=== PATIENT | male | born 1950 | race Caucasian/White ===

== ENCOUNTER 2022-07-06 13:15 | Observation (INO) | payer MEDICARE, SELFPAY ==
--- NOTE | 2022-07-04 12:22 | EKG12_ITS ---
Test Reason : PRE OP Blood Pressure : / mmHG Vent. Rate : 071 BPM Atrial Rate : 071 BPM P-R Int : 208 ms QRS Dur : 080 ms QT Int : 384 ms P-R-T Axes : 058 008 051 degrees QTc Int : 417 ms Normal sinus rhythm Normal ECG Confirmed by BYRON BLUM, VERONICA ([id number]), science editor BEBO MADISON ([id number]) on 07/05/2022 6:19:47 AM Referred By: KWAME Confirmed By:VERONICA MATTHEWS MD
[2022-07-04 12:41] LABS: Hematocrit 42.7 % (40-54); Hemoglobin 13.9 g/dL (13.0-16.5); Mean Corp Hgb Conc 32.6 g/dL (32-36); Mean Corpuscular Hgb 31.8 pg (27.0-32.0); Mean Corpuscular Volume 97.7 fL (80-94); Mean Platelet Vol. 10.1 fl (6.2-12.0); Platelet Count 201 K/mm3 (150-450); RBC Distribution Width CV 12.1 % (11.6-14.6); RBC Distribution Width SD 43.7 fl (35.1-43.9); Red Blood Count 4.37 M/mm3 (4.6-6.2); White Blood Count 7.6 K/mm3 (4.4-11.0)
[2022-07-06] VITALS (13 sets, daily range): BP systolic 108–130; BP diastolic 63–92; PULSE 55–76; RESP 16–18; TEMP 36.3–37.1; O2SAT 93–98; BMI 25.9; BMI 26.0
[2022-07-06] MEDS: Lactated Ringers 1,000 ML 15 ML IV (10:20)
--- NOTE | 2022-07-06 11:43 | PCM.HP.STD ---
HPI - General General Date of Service: 07/06/22 HPI Narrative MARIO YOUNG, is a 72 M who presents for a transurethral resection of the prostate for an enlarged obstructing prostate. We talked about the risk of the surgery including bleeding infection incontinence worsening bladder control failure to help with the surgery after long review with the patient he was willing to proceed. [facility] Medical History (Updated 06/22/22 @ 11:10 by Ashwini Gutierrez) Alcohol use Arthritis Former smoker High cholesterol Leg cramps Prostate disease Wears glasses Home Medications atorvastatin 40 mg tablet 40 mg PO DAILY 06/22/22 [History Last Taken 07/06/22] cholecalciferol (vitamin D3) 25 mcg (1,000 unit) capsule (Vitamin D3) 25 mcg PO DAILY 06/22/22 [History Last Taken 07/06/22] diclofenac sodium 50 mg tablet,delayed release 50 mg PO DAILY 06/22/22 [History Last Taken 07/06/22] docusate sodium 100 mg capsule (Stool Softener) 100 mg PO QHS 06/22/22 [History Last Taken 07/05/22] finasteride 5 mg tablet 5 mg PO QHS 06/22/22 [History Last Taken 07/05/22] folic acid 800 mcg tablet 0.8 mg PO DAILY 06/22/22 [History Last Taken 07/05/22] melatonin 3 mg tablet 3 mg PO QHS 06/22/22 [History Last Taken 07/05/22] methotrexate sodium 2.5 mg tablet 10 mg PO FR 06/22/22 [History Last Taken Unknown] tamsulosin 0.4 mg capsule 0.8 mg PO QHS 06/22/22 [History Last Taken 07/05/22] Allergy/AdvReac Type Severity Reaction Status Date / Time amoxicillin Allergy PT UNSURE Verified 07/06/22 10:35 OF REACTION Surgical History (Updated 06/22/22 @ 11:10 by Ashwini Gutierrez) History of toe surgery Hx of appendectomy Hx of colonoscopy Hx of hand surgery Social History Smoking Status: Former smoker Vital Signs Vital Signs Vital Signs: 07/06/22 10:40 07/06/22 10:40 Temperature 98.3 F Temperature Source Temporal Pulse Rate 76 Respiratory Rate 18 Respiratory Pattern Normal Blood Pressure 125/73 H Blood Pressure Mean 90 Blood Pressure Source Monitor Blood Pressure Position Semi-Fowlers Blood Pressure Location Left Arm Pulse Ox 98 Oxygen Delivery Method Room Air Weight Weight: 87 kg Body Mass Index (BMI) 25.9 Results Lab / Micro Data Result Diagrams: 07/04/22 12:14
[2022-07-06] MEDS: Cefazolin 2 GM in 0.9% Normal Saline 100 ML IV (12:16)
--- NOTE | 2022-07-06 12:30 | PROS_PTH ---
PATIENT: MARIO YOUNG LOC: [facility] U#:[id number] AGE/SX: 72/M ROOM: [facility]313 RE07/06/[address]: Dr. Qamar Alfaro MD : 1950 BED: 1 DIS: 07/07/2022 SPEC #: [id number] RECD: 07/06/22 13:14 STATUS: CHRISTEN HAMM #: [id number] EMILIANO: 07/06/22 12:[address]: Qamar Alfaro DEPT: SURGICAL PATHOLOGY RECD BY: Kev Marti ENTERED: 07/06/22 13:22 SP TYPE: TURP OTHR DR: Dr. Chetan Edwards MD Tissues: Prostate, NOS Procedures: Surgery Specimen Level IV HEADER OPERATION: Cysto, TUR prostate, [employer] PRE-OP DIAGNOSIS: Enlarged obstructing prostate TISSUE SUBMITTED: Prostate tissue MICROSCOPIC DIAGNOSIS Prostate, transurethral resection: Benign nodular hyperplasia. Mild chronic inflammation. AM:chava 07/07/2022 MICROSCOPIC DESCRIPTION Slides are reviewed. GROSS DESCRIPTION Received is one container labeled with the patient's name and designated prostate tissue. The specimen consists of multiple irregular fragments of pink-cantu, rubbery, soft tissue that in aggregate weigh 2 gm and measure in aggregate 2 x 1.5 x 0.2 cm. The entire specimen is submitted in one cassette. / AM:chava 07/06/2022 TC:3 CPT: 89546
--- NOTE | 2022-07-06 12:43 | DCINST_ITS ---
Discharge Instructions Diet Discharge Diet: No restrictions, Light diet - advance as tolerated and Soft diet Activity Discharge Activity: Return to Normal Activity Dressing / Incision Call your doctor if your incision/area has: Sudden Increased Bleeding Follow Up Care Please Follow Up With: Qamar Alfaro MD When: call for appt. Test Results: Test results from this visit will be discussed in further detail at your follow- up appointment, if applicable. Discharge Plan Admission Attending Provider: Qamar Alfaro Primary Care Provider: Chetan Edwards Discharge Orders/Prescriptions Prescriptions: No Action atorvastatin 40 mg Tablet 40 mg PO DAILY melatonin 3 mg Tablet 3 mg PO QHS methotrexate sodium [Methotrexate (Anti-Rheumatic)] 2.5 mg Tablet 10 mg PO FR tamsulosin 0.4 mg Capsule 0.8 mg PO QHS docusate sodium [Stool Softener] 100 mg Capsule 100 mg PO QHS diclofenac sodium 50 mg Tablet,Delayed Release (Dr/Ec) 50 mg PO DAILY finasteride 5 mg Tablet 5 mg PO QHS folic acid 800 mcg Tablet 0.8 mg PO DAILY cholecalciferol (vitamin D3) [Vitamin D3] 25 mcg (1,000 unit) Capsule 25 mcg PO DAILY Referrals / Follow Up: Chetan Edwards MD [Primary Care Provider] - Disposition Disposition (needs filled in before D/C Order can be placed): Home, Self Care
--- NOTE | 2022-07-06 12:44 | OP.PCM_ITS ---
Report of Operation Date of Procedure: 07/06/22 Pre-Operative Diagnosis: BPH with obstruction Post-Operative Diagnosis: Same Surgery/Procedure Performed:: Transurethral section prostate Description of Surgical Findings:: In the preoperative setting I discussed with the patient how the surgery would be done with expect afterwards. We discussed how a prostate resection is done and we discussed the risk of the surgery including, bleeding, infection, retrograde ejaculation, changes with ejaculation or intercourse,. We discussed the possibility that the resection of the prostate may not alleviate his urinary symptoms. We discussed the small risk of developing scar tissue along the urethral channel and strictures. We also discussed the chance of the prostate could grow back and he may need further surgery or treatment in the future for prostate problems. Patient was taken back to the operating room, timeout procedure was performed, he was identified and marked and placed on the operating room table. He underwent general anesthesia. He was placed in dorsolithotomy position. Penis and testicles were prepped and draped in usual sterile fashion. Went into the bladder using the visual obturator with a resectoscope. Once inside the bladder identified the right and left ureteral orifice. I then identified the prostate and the anatomy of the prostate. I marked out the area of the sphincter and the verumontanum was identified. I then proceeded with the prostate resection first resected the median lobe. And then resected the right lobe of the prostate. Then to resect the left lobe of the prostate. I then resected the apical tissue of the prostate. This was a complete resection of all obstructive tissue to improve voiding and relieve obstruction. I then made sure that there was no injury to the sphincter or the verumontanum was still intact. At the end of the resection all the chips were Ellik out of the bladder. I then identified the left and right ureteral orifice and these were confirmed to be in good position and effluxing and not injured. The resectoscope was removed, a 22 [place] catheter was placed into the bladder on continuous irrigation. And the urine was fairly light pink color and draining normally. He was taken back to the PACU in good condition. Surgeon: Qamar Alfaro Type of Anesthesia: General Drains: 22fr [address] way Admit VTE Documentation VTE Present on Admission: No VTE Mechan Device Prophylaxis: SCD's VTE Pharm Prophylaxis ordered?: No
[2022-07-06] MEDS: 0.9% Normal Saline 1,000 ML 125 ML IV ×2 (15:25→22:37)
[2022-07-06] MEDS: Ketorolac 15 MG/ML Vial IV (16:44)
[2022-07-06] MEDS: 0.9% Saline Lock 10 ML Syringe IV (16:44)
[2022-07-06] MEDS: HYDROcodone Bitartrate/Apap 5/325 Tablet PO (22:35)
[2022-07-06] MEDS: Docusate Sodium 100 MG Capsule 200 MG PO (22:35)
[2022-07-06] MEDS: MELATONIN 3 MG TABLET PO (22:36)
[2022-07-06] MEDS: Tamsulosin HCl 0.4 MG Capsule 0.8 MG PO (22:36)
[2022-07-06] MEDS: Ciprofloxacin 400 MG/200 ML BAG 200 MG IV (22:36)
[2022-07-07 02:58] VITALS: BMI 26.0
[2022-07-07 04:30] VITALS: BP 117/70; PULSE 64; RESP 16; TEMP 36.6; O2SAT 97
[2022-07-07 04:41] VITALS: BP 117/70; PULSE 64; RESP 16; TEMP 36.6; O2SAT 97
[2022-07-07 06:34] VITALS: BMI 26.0
[2022-07-07] MEDS: 0.9% Normal Saline 1,000 ML 125 ML IV (07:29)
--- NOTE | 2022-07-07 07:44 | PCM.PN.GU ---
Subjective Subjective Status post TURP urine is fairly clear nurses will remove the Nettles catheter he can urinate and go home today. Objective Data Objective Data Vital Signs: Vital Signs Temp Pulse Resp BP Pulse Ox O2 Del Method 97.8 F 64 16 117/70 97 Room Air 07/07/22 04:41 07/07/22 04:41 07/07/22 04:41 07/07/22 04:41 07/07/22 04:41 07/07/22 04:41 Oxygen Delivery Method Room Air Weight: 87 kg Body Mass Index (BMI) 25.9 Intake & Output: Intake and Output for Last 24 Hours 07/05/22 07/06/22 07/07/22 23:59 23:59 23:59 Intake Total 1210 / 1210 1000 / 1000 Output Total 1250 / 1250 1700 / 1700 Balance -40 / -40 -700 / -700 Lab / Micro Data Result Diagrams: 07/04/22 12:14
[2022-07-07 08:00] VITALS: BP 129/61; PULSE 85; RESP 16; TEMP 36.6; O2SAT 96
[2022-07-07] MEDS: Docusate Sodium 100 MG Capsule 200 MG PO (08:03)
== END 2022-07-07 10:20 | disposition home or self-care (01) ==
LOC: SDC 14:43 → MS3 14:43
PROVIDERS: Anesthesiology; Admitting Provider Urology; PCP Family Medicine; Referring Provider Urology; Visit Provider Urology
PROC: (CPT 52601; principal; 2022-07-06 12:20)
DX: N40.1 Benign prostatic hyperplasia with lower urinary tract symptoms (principal); E78.00 Pure hypercholesterolemia, unspecified; Z87.891 Personal history of nicotine dependence; Z79.899 Other long term (current) drug therapy; M19.90 Unspecified osteoarthritis, unspecified site; N13.8 Other obstructive and reflux uropathy
CPT/HCPCS: 52601; 00914; 36415; 85027; 88305; 93005; 96361; 96365; 96375; 99218; 99251; J7030; J7120; A4216; G0378; G0463; J0744; J2405

== ENCOUNTER → 2024-01-04 | Outpatient (CLI) | payer MEDICARE, SELFPAY ==
[2024-01-04 11:37] LABS: PSA,Total - Annual Screen 0.33 ng/mL (0.00-4.00)
== END | disposition home or self-care (01) ==
LOC: LAB 10:30
PROVIDERS: PCP Family Medicine; Referring Provider Urology; Visit Provider Urology
DX: Z12.5 Encounter for screening for malignant neoplasm of prostate (principal)
CPT/HCPCS: 36415; 84153; G0103